=== PATIENT | female | born 1955 | race Hispanic/Latino ===

== ENCOUNTER 2020-04-20 05:44 | Day surgery (SDC) | payer BC ==
[2020-04-19 11:19] LABS: BASOPHILS % (AUTO) 0.5 % (0.0-5.0); HEMATOCRIT 39.1 % (36-48); LYMPHOCYTES % (AUTO) 41.2 % (21.0-51.0); MEAN CORPUSCULAR HEMOGLOBIN 29.9 pg (27.0-33.0); MEAN CORPUSCULAR HGB CONC 33.8 g/dL (32.0-36.0); MEAN CORPUSCULAR VOLUME 88.5 fL (79-99); NEUTROPHILS % (AUTO) 47.1 % (40.0-77.0); PLATELET COUNT (AUTO) 218 K/uL (130-400); RED BLOOD CELL COUNT(AUTO) 4.42 MIL/uL (4.00-5.50); WHITE BLOOD COUNT (AUTO) 4.2 K/uL (4.8-10.8)
[2020-04-19 11:30] LABS: CREATININE 0.7 mg/dL (0.5-1.5); POTASSIUM 4.6 mmol/L (3.5-5.1)
[2020-04-19 13:41] VITALS: BP 174/84
[2020-04-20] VITALS (17 sets, daily range): BP systolic 140–177; BP diastolic 75–98
[~2020-04-20] VITALS: Ht 162.6 cm; Wt 85.6 kg
[~2020-04-20 05:44] MED LIST: ALEN70TA69 PO; ASPI-1443 PO; EXEM25TA PO; IBUP-2077 PO; LACTATED RINGERS 1000ML 1,000 ML IV SCH; LOSA1TAB37 PO; PRAV10TA39 PO; VITA100049 PO
[2020-04-20] MEDS ORDERED: CEFAZOLIN SODIUM 1 GM VIAL IVP SCH (06:00)
--- NOTE | 2020-04-20 07:27 | NUR ---
PT STATES SHE HAD LYMPH NODES REMOVED TO LEFT BREAST 2019, PER DR. VILLANUEVA'S H&P, PT HAS A HX OF LEFT PARTIAL MASTECTOMY 2019.
--- NOTE | 2020-04-20 07:53 | NUR ---
CALLED CINDY ARMSTRONG CRNA AND MADE HIM AWARE PT HAD A LEFT PARTIAL MASTECTOMY AND LEFT ARM IS RESTRICTED FOR BP AND IV USE AND HE STATED HE WILL COME TO ASSESS PT AND WILL DECIDE WHERE TO INSERT IV.
[2020-04-20] MEDS ORDERED: LIDOCAINE PF 2% 5ML ABBOJECT ONE (08:20)
[2020-04-20] MEDS ORDERED: ONDANSETRON HCL 4 MG/2 ML VIAL ONE (08:20)
[2020-04-20] MEDS ORDERED: DEXAMETHASONE SOD PHOSPHATE 10MG/ML 1ML VIAL ONE (08:20)
[2020-04-20] MEDS ORDERED: MIDAZOLAM HCL 1 MG/ML 2ML VIAL ONE (08:20)
[2020-04-20] MEDS ORDERED: PROPOFOL 10 MG/ML 20ML VIAL IV ONE (08:20)
[2020-04-20] MEDS ORDERED: ROCURONIUM 10MG/1ML SYR 10 MG/ML ML ONE (08:21)
[2020-04-20] MEDS ORDERED: FENTANYL CITRATE PF 50 MCG/1 ML 2ML VIAL ONE (08:21)
[2020-04-20] MEDS: SODIUM CHLORIDE 0.9% 1000ML 1,000 ML IV ONE ×2 (09:21→10:13)
[2020-04-20] MEDS ORDERED: ROPIVACAINE 0.5% 5MG/ML 30ML IJ ONE (09:29)
[2020-04-20] MEDS ORDERED: GLYCOPYRROLATE 1 MG/5 ML SYRINGE ONE (10:04)
[2020-04-20] MEDS ORDERED: NEOSTIGMINE 5MG/5ML SYR IV ONE (10:05)
--- NOTE | 2020-04-20 11:10 | NUR ---
Pt received Pt received from PACU via stretcher accompanied by IRIS Long. Pt drowsy but arousable. Has sling to right arm with 3 dressing to right shoulder. Has telfa dressings with opsite; dry and intact. Pt appears in no distress. Resting comfortably.
--- NOTE | 2020-04-20 12:05 | NUR ---
D/C Pt prepared for discharge. Pt awake and alert. at bedside. Continues with sling to right arm and dressings are dry and intact. Written discharge instructions given with info regarding f/u visit. Both verbalized understanding. Pt was then taken to private vehicle via w/c.
== END 2020-04-20 12:10 | disposition home or self-care (01) ==
LOC: DAH 05:44
PROVIDERS: ATTEND Orthopaedic Surgery
DX: S46.011A Strain of muscle(s) and tendon(s) of the rotator cuff of right shoulder, initial encounter (principal); Z20.828 Contact with and (suspected) exposure to other viral communicable diseases; S43.431A Superior glenoid labrum lesion of right shoulder, initial encounter; M75.41 Impingement syndrome of right shoulder; M25.711 Osteophyte, right shoulder; M19.011 Primary osteoarthritis, right shoulder; M75.51 Bursitis of right shoulder; I10 Essential (primary) hypertension; E11.9 Type 2 diabetes mellitus without complications; E66.01 Morbid (severe) obesity due to excess calories; E78.00 Pure hypercholesterolemia, unspecified; Z98.890 Other specified postprocedural states; Z85.3 Personal history of malignant neoplasm of breast; Z90.12 Acquired absence of left breast and nipple; Z79.899 Other long term (current) drug therapy; Z79.82 Long term (current) use of aspirin; X58.XXXA Exposure to other specified factors, initial encounter
CPT/HCPCS: 29826; 29827; 36415; 64415; 76942; 80048; 82948 ×2; 85025; 87426; 93005; A4215; A4216; A4221; A4222; A4223 ×3; A4452; A4565; A4606; A4649 ×5; A4663; C1713; J0690; J1100; J2001; J2250; J2405; J2704; J2710; J2795; J3010; J3490; J7030; J7120